=== PATIENT | female | born 1955 | race Caucasian/White ===

== ENCOUNTER 2020-07-23 09:32 | Outpatient (CLI) | payer SELFPAY ==
[2020-07-23 13:58] LABS: SARS-CoV-2 RNA PCR Negative (Negative)
== END 2020-07-23 09:33 | disposition home or self-care (01) ==
DX: Z20.822 Contact with and (suspected) exposure to COVID-19 (principal)
CPT/HCPCS: C9803; U0003; U0005

== ENCOUNTER 2022-09-14 14:12 | Outpatient (RCR) | payer MEDICARE, OTHER, SELFPAY ==
--- NOTE | 2022-09-14 15:31 | PTOPEVAL1 ---
Assessment and note entered by Chan Mccloud Evaluation Information Assessment Status Evaluation Diagnosis right ankle pain Onset 08/15/22 Subjective Information Pt. reports she initially injured the right ankle in 2016. She underwent surgery to repair a fx. She was unsuccessful with the first surgery and underwent a second surgery in 2017. She reports that she has had constant ankle pain since the initial injury. She reports that over the past month her pain has worsened. She describes her worst pain on the inside of the right ankle behind the medial malleolus. she reports that pain is most notable with first getting out of bed. She reports that pain will also worsen with prolonged walking. She takes regular Asprin and Advil to address her pain. She reports that she has no problem with sleeping at night. She is not using an AD. She states that she can only stand for about 15 minutes before having to sit due to pain. She states that she continues to drive. She reports she is currently retired. She reports that her goal for therapy is to reduce her ankle pain on the right. Reported Pain Level Pain Score 6: Self Report Assessment PT Clinical Summary Pt. is a 67 year old female who enters the clinic with right foot/ankle pain. She presents with severe postural deformity, impaired gait, impaired ROM and impaired strength, as well as pain on this date. Continued skilled PT is indicated in order to improve these areas to allow for improved comfort with standing activities. Recommend Carline brace for improved support of the right ankle with standing activities. Plan of Care Interventions Electrical Stimulation,Gait Training,Hot Pack/Cold Pack,Manual Therapy,Neuro Re-education,Patient/ Caregiver Educati,Therapeutic Activities, Therapeutic Exercise PT Services Indicated Yes Treatment Frequency and 2x/week x 10 visits Duration These treatments will address the objective and functional deficits as defined above. The patient will be advanced safely and appropriately in order for the patient to progress towards his/her prior level of function. Additional exercises will be introduced and as well as a comprehensive home exercise program upon discharge, if needed, ?to ensure carryover of functional gains achieved in the clinic. This treatment plan has been reviewed and agreement upon by the patient.
--- NOTE | 2022-09-14 15:32 | OPREHPOC ---
Outpatient Therapy Plan of Care This is a Multidisciplinary Plan of Care that may contain components documented by all disciplines (PT, OT, and ST.) PT Problem 1 PT Problem #1 Knowledge Deficit PT Goal 1 Goal Pt. will be independent with a HEP addressing strength and mobility at the right foot/ankle Target Visit 2 PT Problem 2 PT Problem #2 Pain PT Goal 1 Goal Decrease pain reports to 6/10 at worst with prolonged standing activities. Target Visit 10 PT Problem 3 PT Problem #3 Impaired Range of Motion PT Goal 1 Goal Pt. will demonstrate improved ankle dorsiflexion AROM to 10 degrees Target Visit 6 PT Problem 4 PT Problem #4 Impaired Functional Mobil PT Goal 1 Goal Pt. will demonstrate ability to stand for 30 minutes without rest and pain levels at 6/10 at worst in order to more thoroughly complete standing IADL's. Target Visit 10
--- NOTE | 2022-10-06 15:52 | PCPTNOTE ---
Kathy called to cancel her appointment today due to illness
--- NOTE | 2022-10-27 14:32 | PCPTNOTE ---
patient called and cancelled therapy today due to having to get her AC worked on at her home. [facility]
== END 2022-09-29 23:59 | disposition home or self-care (01) ==
LOC: CHSPT 14:12
DX: M25.571 Pain in right ankle and joints of right foot (principal)
CPT/HCPCS: 97014; 97110; 97112; 97140; 97161; G0283

== ENCOUNTER 2024-05-02 11:14 | Outpatient (CLI) | payer MEDICARE, SELFPAY ==
[2024-05-02 11:39] LABS: Basophils Percent Auto 1.2 % (0.0-1.0); Eosinophils Absolute Auto 0.39 K/mm3 (0.02-0.50); Eosinophils Percent Auto 4.8 % (1.0-6.0); Hematocrit 43.5 % (35.0-42.0); Hemoglobin 13.4 g/dL (11.7-13.8); Immature Granulocyte Absolute 0.05 K/mm3 (0.00-0.00); Immature Granulocyte Percent A 0.6 % (0.0-0.0); Lymphocytes Absolute Auto 2.07 K/mm3 (1.10-4.50); Lymphocytes Percent Auto 25.7 % (18.0-42.0); Mean Corpuscular HGB Conc 30.8 g/dL (32-36); Mean Corpuscular Hemoglobin 25.2 pg (27.0-31.0); Mean Corpuscular Volume 81.8 fL (78.0-102.0); Monocytes Absolute Auto 0.62 K/mm3 (0.10-0.90); Monocytes Percent Auto 7.7 % (2.0-11.0); Neutrophils Absolute Auto 4.82 K/mm3 (1.70-7.20); Platelet Count Result 324 K/mm3 (150-420); Red Blood Count 5.32 M/mm3 (4.20-5.40); Red Cell Distribution Width 15.7 % (11.6-14.4); White Blood Count 8.1 K/mm3 (4.8-10.8)
[2024-05-02 11:51] LABS: Hemoglobin A1C 6.3 % (<5.7)
[2024-05-02 12:51] LABS: Alanine Aminotransferase 39 U/L (14-59); Albumin Level 4.2 g/dL (3.4-5.0); Alkaline Phosphatase 95 U/L (46-116); Anion Gap 10 mmol/L (4-12); Aspartate Amino Transferase 18 U/L (15-37); Bilirubin,Total 0.4 mg/dL (0.00-1.00); Blood Urea Nitrogen 20 mg/dL (7-18); Calcium 9.4 mg/dL (8.5-10.1); Carbon Dioxide 27 mmol/L (21-32); Chloride 105 mmol/L (98-108); Cholesterol 246 mg/dL (0-200); Estimated Glomerular Filt Rate 57; Folic Acid > 20.0 ng/mL (8.6->20); Glucose 112 mg/dL (70-99); HDL Direct 81 mg/dL (40-60); Iron 79 ug/dL (50-170); LDL Cholesterol Calculated 148 mg/dL (<130); Osmolality Calculated 297 mOsm/kg (285-295); Percent Iron Saturation 22 % (12-57); Potassium 4.6 mmol/L (3.5-5.1); Sodium 142 mmol/L (136-145); Triglycerides 83 mg/dL (0-150); Vitamin B12 333 pg/mL (193-986)
--- OUTSIDE RECORDS SUMMARY | 2024-05-02 13:04 | XMS_ITS | Data Portability ---
Author Organization [place] [facility],, Yvette koroma Address [address] [place] [address] Assessment No assessment recorded. Plan of Treatment Reminders Order Date Submit Date Provider Last Modified By Organization Details Last Modified Time Details Appointments None recorde d. Lab HbA1c (hemogl obin A1c), blood 2024 025 [facility] (Lab), [address] [place], [address], 5 14:46:02 CMP, serum or plasma 2024 025 [facility] (Lab), [address] [place] [address], [address], 5 14:46:03 urinaly sis, complet e 2024 025 [facility] (Lab), [address] [place] [address], [id number], 5 14:46:02 albumin /creati nine, mass ratio, urine 2024 025 [facility] (Lab), [address] [place], [address], 5 14:46:03 lipid panel, serum 2024 025 [facility] (Lab), [address] [place] [address], [id number], 5 14:46:02 CBC w/ auto diff 2024 025 [facility] (Lab), [address] [place] [address], [id number], 5 14:46:02 vitamin D, 25-hydr oxy, total, serum 2024 025 [facility] (Lab), [address] [place] [address], [id number], 5 14:46:02 iron + total iron-bi nding capacit y (TIBC), serum 2024 025 [facility] (Lab), [address] [place] [address], [address], 5 14:46:02 vitamin B12 + folate, serum or blood 2024 025 [facility] (Lab), [address] [place] [address], [id number], 5 14:46:03 CMP, serum or plasma 2023 024 [facility], [address] [place] [address], [address], 4 09:30:43 urinaly sis, complet e 2023 024 [facility], [address] [place] [address], [place], [address], 4 09:30:44 albumin /creati nine, mass ratio, urine 2023 024 [facility], [address] [place] [address], [place], [address], 4 09:30:44 CBC w/ auto diff 04/30/ 2024 04/30/2 024 [facility], [address] [facility], [facility], [place], [address], 4 09:30:43 iron + total iron-bi nding capacit y (TIBC), serum 2023 024 [facility], [address] [facility], [facility], [place], [address], 4 09:30:43 vitamin B12 + folate, serum or blood 2023 024 [facility], [address] [facility], [facility], [place], [address], 4 09:30:43 vitamin D, 25-hydr oxy, total, serum 2023 024 [facility], [address] [facility], [place], [address], 4 09:30:43 TSH + free T4, serum 2023 024 [facility], [address] [facility], [place], [address], 4 09:30:43 Referral None recorde d. Procedures None recorde d. Surgeries None recorde d. Imaging MAMMO, screeni carmina, thom al 2023 024 [facility] (Imaging), [address] [place] [address], [address], 4 09:21:11 Medication Orders furosem sruthi 40 mg tablet 2024 025 [facility] #[id number], [address] [place], [address], 5 15:56:03 potassi um chlorid e ER 20 mEq tablet, extende d release 2024 025 [facility] #[id number], [address] [place], [address], 5 15:56:04 Loratad ine-D 10 mg-240 mg tablet, extende d release 24 hr 2024 025 [facility] [address] [place], [address], 5 15:56:05 valacyc lovir 1 gram tablet 2024 025 [id number], [address] [place], [address], 5 15:56:03 hydroxy zine HCl 50 mg tablet 2024 025 [facility], [address] [place], [address], 5 15:56:04 cefdini r 300 mg capsule 2024 025 [facility], [address] [place], [address], 5 15:56:03 ProAir HFA 90 mcg/act uation aerosol inhaler 2024 025 [facility], [address] [place], [address], 5 15:56:04 butalbi lisa 50 mg-acet aminoph en 325 mg-caff eine 40 mg-code ine 30 mg cap 2024 025 [facility], [address] [place], [address], 5 15:56:05 meloxic am 7.5 mg tablet 2023 025 [facility] #46631, [address], [place], [id number], 5 15:40:08 furosem sruthi 40 mg tablet 2023 [facility] #04145, [address], [place], [id number], 4 15:34:12 ondanse anthony 8 mg disinte grating tablet 2023 024 [facility] #72339, [address], [place], [id number], 4 15:34:26 Wal-iti n D 10 mg-240 mg tablet, extende d release 2023 [facility] #95336, [address], [place], [id number], 4 15:34:22 potassi um chlorid e ER 20 mEq tablet, extende d release 2023 024 [facility] #22393, [address], [place], [id number], 4 15:34:17 cefdini r 300 mg capsule 2023 024 [facility] #95945, [address], [place], [id number], 4 17:12:03 hydroxy zine HCl 50 mg tablet 2023 024 [facility] #34315, [address], [place], [id number], 4 15:34:16 butalbi lisa 50 mg-acet aminoph en 325 mg-caff eine 40 mg-code ine 30 mg cap 2023 024 [facility] #22947, [address], [place], [id number], 4 15:34:18 cyclobe nzaprin e 10 mg tablet 2021 [facility] #06818, [address], [place], [id number], 4 15:13:58 Spiriva Respima t 1.25 mcg/act uation solutio n for inhalat ion 2021 [facility] #27535, [address], [place], [id number], 4 15:15:50 potassi um chlorid e ER 20 mEq tablet, extende d release 2021 [facility] #07846, [address], [place], [id number], 15:02:05 Clariti n-D 24 Hour 10 mg-240 mg tablet, extende d release [email or web address] [place] [address] [facility] #48493, [address] [place], [place], [id number], 18:08:14 hydroxy zine HCl 50 mg tablet 2021 [facility] [place], [address], 15:35:39 prednis one 20 mg tablet 2021 [facility] #19387, [address], [place], [id number], 5 15:30:16 ipratro pium bromide 42 mcg (0.06 %) nasal spray 2021 022 [facility] #79476, [address], [place], [id number], 16:42:37 Patient TargetsNo targets recorded. Patient Instructions Encounter Date Encounter Id Patient Instructions Last Modified By Organization Details Last Modified Time 08/12/2021 [id number] eustachian tube problems: care instructions [email or web address] Not available 08/12/2021 16:42:29 11/20/2021 [id number] managing your allergies: care instructions Not available 11/20/2021 18:07:46 -Please return to office at earliest convenience for complete physical exam and further workup of allergies, pruritis. [email or web address] Not available 11/20/2021 16:36:30 I have interviewed and examined the patient with Kelsie Brewer RN. I have personally confirmed the pierre elements of the history and physical examination and have personally reviewed the radiographic and laboratory data that are available. I have collaborated directly with Kelsie Brewer RN in the formulation of the assessment and plan. I have edited the above note in electronic format, and the content reflects my personal involvement in this patient encounter. Not available 11/25/2021 05:33:18 01/27/2022 [id number] cough: care instructions [email or web address] Not available 01/27/2022 14:59:53 rhinitis: care instructions [email or web address] Not available 01/27/2022 14:59:53 06/22/2023 [id number] mammogram: about this test [email or web address] Not available 06/22/2023 15:25:59 back care and preventing injuries: care instructions [email or web address] Not available 06/22/2023 15:33:50 getting back to normal after low back pain: care instructions [email or web address] Not available 06/22/2023 15:33:50 learning about relief for back pain [email or web address] Not available 06/22/2023 15:33:50 high blood pressure: care instructions [email or web address] Not available 06/22/2023 15:26:00 learning about high blood pressure jtillinghast Not available 06/22/2023 15:25:59 Acute Sinusitis: Care Instructions [email or web address] Not available 06/22/2023 15:36:00 anemia: care instructions [email or web address] Not available 06/22/2023 15:25:59 hypothyroidism: care instructions [email or web address] Not available 06/22/2023 15:25:59 04/28/2024 [id number] When You Want to Lose Weight: Care Instructions [email or web address] Not available 04/28/2024 15:55:57 high blood pressure: care instructions [email or web address] Not available 04/28/2024 15:55:56 learning about high blood pressure jtillinghast Not available 04/28/2024 15:55:58 Acute Sinusitis: Care Instructions [email or web address] Not available 04/28/2024 15:55:57 anemia: care instructions [email or web address] Not available 04/28/2024 15:55:57 learning about asthma [email or web address] Not available 04/28/2024 15:55:58 hypothyroidism: care instructions jtillinghast Not available 04/28/2024 15:55:57 Reason for Referral None Reported. Problems Name Problem SNOMED Code Status Onset Date Resolution Date Notes Provider Name and Address Organization Details Recorded Time Dyspnea [id number] Active MD [address], [place], [address] [facility] [place] [facility], 5 10:22:53 Chronic rhinitis 85521418 Active MD [address], [place], [address] , [place] [facility], 6 00:20:56 Allergic asthma 905229896 Active MD [address], [place], [address] , [place] [facility], 6 15:25:29 Allergy to latex Active Iris drummond [place] [facility], 6 09:33:23 Migraine 19882658 Active MD [address], [place], [address], [place] [facility], 6 15:25:29 Anxiety 65875262 Active Iris drummond, [place] [facility], 5 13:51:12 Nausea 290878869 Completed 02/14/[address], [place], [address], [place] [facility], 6 09:42:19 Acute maxillar y sinusiti s 27451965 Active Iris drummond, [place] [facility], 6 10:59:38 Benign paroxysm al position al vertigo 764410591 Active MD [address], [place], [address], [place] [facility], 6 23:30:08 Celiac disease 837278971 Active Rukhsana drummond, [place] [facility], 6 15:22:24 Generali zed headache 355327595 Completed 02/14/[address], [place], [address], [place] [facility], 6 09:41:56 Herpes labialis 0166942 Active Isa drummond, [place] [facility], 6 11:40:05 Drug withdraw al headache 21600714 Active MD [address], [place], [address], [place] [facility], 6 00:20:56 Strain of neck muscle 080977792 Completed 02/14/[address], [place], [address], [place] [facility], 6 09:42:28 Bruxism 243134714 Active MD [address], [place], [address], [place] [facility], 6 00:20:56 Peripher al edema 995323911 Active MD [address], [place], [address], [place] [facility], 6 00:20:56 Iron deficien cy anemia 27295483 Active Rukhsana drummond, [place] [facility], 6 15:22:24 Impacted cerumen 23616178 Active MD [address], [place], [address], [place] [facility], 6 09:21:19 Contact dermatit is 80806405 Active MD [address], [place], [address], [place] [facility], 6 09:21:19 Pruritic disorder 342273044 Active [address], [place], [address], [place] [facility], 6 16:58:22 Gluten sensitiv ity 441311875 Active [address], [place], [address], [place] [facility], 6 16:59:44 Chronic pain 11270392 Active [address], [place], [address], [place] [facility], 8 15:57:46 Exposure to SARS-CoV -2 Completed 202010/12/2020 Removal Reason: Problem marked historica l by user gitasposito 4 from the COVID-[address] watch [address], [place], [address], [place] [facility], 12:53:09 Problem Notes None recorded. Procedures Surgical History Date Name Laterality Status Provider Name and Address Organization Details Recorded Time 6 Cerumen Removal completed MD [address], [place], [address], [place] [facility], 07/30/2015 09:21:19 6 Cerumen Removal completed MD [address], [place], [address], [place] [facility], 07/04/2015 17:39:59 Imaging Results None recorded. Procedure Notes None recorded. Medical Equipment None Reported. Allergies No known drug allergies Medications Name Sig Start Date Stop Date Status Note LastModified by Organization Details LastModified Time Prescripti on - Prior Authorizat ion Request 11/22 completed Not Available Not Available Not Available cyclobenza arnaldo 10 mg tablet TAKE 1 TABLET BY MOUTH TWICE DAILY NEEDED 06/21 completed Not Available Not Available Not Available furosemide 40 mg tablet TAKE 1 TABLET BY MOUTH EVERY DAY active Not Available Not Available No t Available prednisone 10 mg tablet Take 4 tablets for 4 days, 3 tablets for 3 days, 2 tablets for 2 days and 1 tablet for 2 days 04/28 completed Not Available Not Available Not Available doxycyclin e hyclate 100 mg capsule TAKE 1 CAPSULE BY MOUTH TWICE DAILY FOR 10 DAYS 06/21 completed Not Available Not Available Not Available clindamyci n HCl 300 mg capsule 02/17 completed Not Available Not Available Not Available albuterol sulfate 2.5 mg/3 mL (0.083 %) solution for nebulizati on active Not Available Not Available Not Available azithromyc in 250 mg tablet TAKE 2 TABLETS BY MOUTH TODAY, THEN TAKE 1 TABLET DAILY FOR 4 DAYS DIRECTED 06/21 completed Not Available Not Available Not Available tramadol 37.5 mg-acetami nophen 325 mg tablet active Not Available Not Available No t Available benzonatat e 200 mg capsule Take 1 capsule 3 times a day by oral route as needed for 10 days. 09/21 completed Not Available Not Available Not Available Zovia 1/35E (28) 1 mg-35 mcg tablet Take 1 tablet every day by oral route. 2015 active Not Available Not Available Not Avai lable valacyclov ir 1 gram tablet 2 tabs twice a day by mouth every 24 hours for a total of 2 doses as needed active Not Available Not Available No t Available sumatripta n 100 mg tablet Take by oral route. one tablet every 2 hours as needed for headache . maximum 2 tabs in 24 hours active Not Available Not Available No t Available hydrocodon e 5 mg-acetami nophen 325 mg tablet TAKE 1 TABLET BY MOUTH EVERY 6 HOURS NEEDED FOR PAIN 08/12 completed Not Available Not Available Not Available prochlorpe razine maleate 5 mg tablet TAKE 1 TABLET BY MOUTH EVERY 4 HOURS 06/21 completed Not Available Not Available Not Available ondansetro n HCl 8 mg tablet TAKE 1 TABLET BY MOUTH EVERY 8 HOURS active Not Available Not Available No t Available sumatripta n 25 mg tablet active Not Available Not Available Not Available ondansetro n HCl 4 mg tablet TAKE 2 TABLETS BY MOUTH TWICE DAILY FOR 10 DAYS 11/02 completed Not Available Not Available Not Available prednisone 20 mg tablet TAKE 2 TABS IN MORNING W/FOOD X 5 DAYS-DO NOT TAKE ANY NSAIDS(I BUPROFEN ,ALEVE,E TC)ON THIS MEDICINE 04/28 completed Not Available Not Available Not Available hydroxyzin e pamoate 50 mg capsule TAKE 1 CAPSULE BY MOUTH FOUR TIMES DAILY 11/20 completed Not Available Not Available Not Available diphenoxyl ate-atropi ne 2.5 mg-0.025 mg tablet active Not Available Not Available No t Available penicillin V potassium 500 mg tablet TAKE 1 TABLET BY MOUTH EVERY 12 HOURS X 10 DAYS 04/28 completed Not Available Not Available Not Available topiramate 25 mg tablet 1 tablet po daily for 5 days, then add 1 tablet daily every 5 days to target of 4 tabs twice daily active Not Available Not Available No t Available hydroxyzin e HCl 50 mg tablet Take 1 tablet 4 times a day by oral route as needed for 30 days. active Not Available Not Available No t Available acetaminop hen 300 mg-codeine 30 mg tablet 07/09 completed Not Available Not Available Not Available prochlorpe razine maleate 10 mg tablet Take 1 tablet 3 times a day by oral route for 5 days. 09/26 completed Not Available Not Available Not Available valacyclov ir 500 mg tablet TAKE 1 TABLET BY MOUTH ONCE DAILY active Not Available Not Available No t Available hydrocodon e 10 mg-acetami nophen 325 mg tablet 01/08 completed Not Available Not Available Not Available omeprazole 40 mg capsule,de layed release TAKE 1 CAPSULE BY MOUTH ONCE DAILY 06/21 completed Not Available Not Available Not Available tramadol 50 mg tablet 09/26 completed Not Available Not Available Not Available triamcinol one acetonide 0.1 % topical cream Apply 1 applicat ion twice a day by topical route. 09/26 completed Not Available Not Available Not Available butalbital -acetamino phen-caffe ine 50 mg-325 mg-40 mg tablet active Not Available Not Available Not Available amoxicilli n 500 mg tablet 06/08 completed Not Available Not Available Not Available ondansetro n 8 mg disintegra ting tablet DISSOLVE 1 TABLET IN THE MOUTH EVERY 8 HOURS active Not Available Not Available No t Available ketorolac 10 mg tablet active Not Available Not Available Not Available cefadroxil 500 mg capsule 02/13 completed Not Available Not Available Not Available meloxicam 7.5 mg tablet TAKE 1 TABLET BY MOUTH ONCE DAILY 04/28 completed Not Available Not Available Not Available oxycodone- acetaminop hen 5 mg-325 mg tablet 06/21 completed Not Available Not Available Not Available amoxicilli n 875 mg tablet 875 MG ORALLY EVERY 12 HOURS FOR 10 DAYS 06/21 completed Not Available Not Available Not Available alprazolam 0.25 mg tablet TAKE 1 TABLET BY MOUTH THREE TIMES DAILY 06/21 completed Not Available Not Available Not Available potassium chloride ER 20 mEq tablet,ext ended release(pa rt/cryst) Take 1 tablet every day by oral route. active Not Available Not Available No t Available amitriptyl ine 25 mg tablet Take 1 tablet every day by oral route at bedtime for 90 days. active Not Available Not Available No t Available meclizine 25 mg tablet Take 1 tablet 3 times a day by oral route. 09/26 completed Not Available Not Available Not Available benzonatat e 100 mg capsule 06/08 completed Not Available Not Available Not Available dexamethas one 2 mg tablet TAKE 5 TABLETS BY MOUTH DAILY IN THE MORNING FOR 1 DAY 06/21 completed Not Available Not Available Not Available hydrocodon e 7.5 mg-acetami nophen 325 mg tablet active Not Available Not Available No t Available prednisone 2.5 mg tablet active Not Available Not Available Not Available cephalexin 500 mg capsule 02/13 completed Not Available Not Available Not Available oseltamivi r 75 mg capsule Take 1 capsule every day by oral route for 10 days. 02/17 completed Not Available Not Available Not Available butalbital 50 mg-acetami nophen 325 mg-caffein e 40 mg-codeine 30 mg cap TAKE 1 CAPSULE BY MOUTH EVERY 4 HOURS NEEDED active Not Available Not Available No t Available Claritin-D 12 Hour 5 mg-120 mg tablet,ext ended release Take 1 tablet twice a day by oral route for 30 days. 06/08 completed Not Available Not Available Not Available omeprazole 20 mg capsule,de layed release active Not Available Not Available Not Available montelukas t 10 mg tablet active Not Available Not Available Not Available gabapentin 100 mg capsule TAKE 1 CAPSULE BY MOUTH EVERY DAY 04/28 completed Not Available Not Available Not Available azelastine 137 mcg (0.1 %) nasal spray [place] 2 sprays twice a day by intranas al route. 06/15 completed Not Available Not Available Not Available epinephrin e 0.3 mg/0.3 mL injection, auto-injec tor Take 1 auto by injectio n route as needed. active Not Available Not Available No t Available levofloxac in 500 mg tablet active Not Available Not Available Not Available methylpred nisolone 4 mg tablets in a dose pack FOLLOW PACKAGE DIRECTIO NS 08/12 completed Not Available Not Available Not Available albuterol sulfate HFA 90 mcg/actuat ion aerosol inhaler INHALE 2 TO 3 PUFFS BY MOUTH EVERY 4 TO 6 HOURS NEEDED active Not Available Not Available No t Available ipratropiu m bromide 42 mcg (0.06 %) nasal spray 2 SPRAY INTRANAS ALLY THREE TIMES A DAY ADMINIST ER INTO EACH NOSTRIL active Not Available Not Available No t Available cefdinir 300 mg capsule Take 1 capsule every 12 hours by oral route for 10 days. active Not Available Not Available No t Available fluticason e propionate 50 mcg/actuat ion nasal spray,susp ension Inhale 2 sprays every day by intranas al route. active Not Available Not Available No t Available sertraline 50 mg tablet Take 1 tablet every day by oral route for 30 days. 06/21 completed Not Available Not Available Not Available ipratropiu m bromide 21 mcg (0.03 %) nasal spray USE 2 SPRAYS IN EACH NOSTRIL TWICE DAILY 08/12 completed Not Available Not Available Not Available diazepam 5 mg tablet 06/21 completed Not Available Not Available Not Available amoxicilli n 875 mg-potassi um clavulanat e 125 mg tablet 06/08 completed Not Available Not Available Not Available amoxicilli n 500 mg-potassi um clavulanat e 125 mg tablet 02/13 completed Not Available Not Available Not Available 16.2 mg-0.1037 mg-0.0194 mg tablet 11/20 completed Not Available Not Available Not Available Loratadine -D 10 mg-240 mg tablet,ext ended release 24 hr TAKE 1 TABLET BY MOUTH DAILY 2024 active Not Available Not Available Not Avai lable potassium chloride ER 10 mEq tablet,ext ended release(pa rt/cryst) 09/26 completed Not Available Not Available Not Available duloxetine 20 mg capsule,de layed release TAKE 1 CAPSULE BY MOUTH TWICE DAILY 06/21 completed Not Available Not Available Not Available ferrous gluconate 324 mg (36 mg iron) tablet Take 1 tablet 3 times a day by oral route. 06/08 completed Not Available Not Available Not Available Claritin-D 12 Hour 1 TABLET DAILY 03/06 completed Not Available Not Available Not Available ferrous gluconate 324 mg (38 mg iron) tablet TAKE 1 TABLET BY MOUTH THREE TIMES DAILY 06/21 completed Not Available Not Available Not Available Butalbital Compound with Codeine 30 mg-50 mg-325 mg-40 mg capsule TAKE 1 CAPSULE BY MOUTH EVERY 4 HOURS FOR 5 DAYS active Not Available Not Available No t Available ferrous gluconate 325 mg (36 mg iron) tablet Take 1 tablet 3 times a day by oral route for 30 days. 06/08 completed CALLED IN Not Available Not Available Not Available diclofenac 1 % topical gel APPLY 2 GRAMS TO SINGLE ELBOW, WRIST OR HAND 4 TIMES DAILY active Not Available Not Available No t Available Dulera 200 mcg-5 mcg/actuat ion HFA aerosol inhaler Inhale 2 puffs twice a day by inhalati on route. 06/08 completed Not Available Not Available Not Available Wal-Fex D 24 Hour 180 mg-240 mg tablet,ext ended release Take one tablet daily 01/27 completed Not Available Not Available Not Available Vicodin ES 7.5 mg-300 mg tablet Take 1 tablet every day by oral route for 5 days. active Not Available Not Available No t Available potassium chloride ER 20 mEq tablet,ext ended release TAKE 1 TABLET BY MOUTH EVERY DAY active Not Available Not Available No t Available Spiriva Respimat 1.25 mcg/actuat ion solution for inhalation Inhale 2 puffs every day by inhalati on route. 06/21 completed Not Available Not Available Not Available Paxlovid 300 mg (150 mg x 2)-100 mg tablets in a dose pack TK 2 NIRMATRE LVIR TS AND 1 RITONAVI R T TOGETHER PO BID FOR 5 DAYS 06/21 completed Not Available Not Available Not Available Vitals Date Recorded Body height Heart rate Oxygen saturation Oxygen saturation in Arterial blood by Pulse oximetry Respiratory rate Body temperature Systolic blood pressure Diastolic blood pressure Provider Name and Address Organization Details Last Updated DateTime 2 160.02 cm 97 /min 98 % 98 % 18 /min 96.4 [degF] 148 mm[Hg] 80 mm[Hg] Liz Aly [place] [facility], 2 15:05:37 Date Recorded Body height Body mass index (BMI) Body weight Heart rate Oxygen saturation Oxygen saturation in Arterial blood by Pulse oximetry Respiratory rate Body temperature Systolic blood pressure Diastolic blood pressure Provider Name and Address Organization Details Last Updated DateTime 4 160.02 cm 36.5 kg/m2 38903.0 3 g 104 /min 94 % 94 % 18 /min 97.4 [degF] 132 mm[Hg] 84 mm[Hg] hiral zamarripa [place] [facility], 4 15:10:32 Date Recorded Body height Body mass index (BMI) Body weight Oxygen saturation Oxygen saturation in Arterial blood by Pulse oximetry Heart rate Respiratory rate Systolic blood pressure Diastolic blood pressure Provider Name and Address Organization Details Last Updated DateTime 5 160.02 cm 35.6 kg/m2 23112.0 7 g 97 % 97 % 112 /min 18 /min 148 mm[Hg] 82 mm[Hg] Sarah Meredith [place] [facility], 5 15:20:04 Social History Question Answer Notes LastModified by Organizat ion Details LastModified Time Tobacco Smoking Status Never Smoker Iris Katherine drummond [place] [facility], 06/28/2014 14:51:03 What Is Your Level Of Alcohol Consumption? Occasional [email or web address] Information not available 06/28/2014 What Was The Date Of Your Most Recent Tobacco Screening? 04/28/2024 [email or web address] Information not available 04/28/2024 Do You Use Any Illicit Or Recreational Drugs? No Information not available 06/22/2023 Do You Or Have You Ever Used Any Other Forms Of Tobacco Or Nicotine? No [email or web address] Information not available 06/22/2023 Sex: Unknown Functional Status None recorded. Mental Status None recorded. Family History Relationship Description Onset Age of this Age Resolved Age Notes LastModified by Organization Details LastModified Time Mother Heart disease [email or web address] Not available 15:23:16 Mother Arthritis [email or web address] Not avai lable 06/18/2015 15:23:16 Father Heart disease 83 [email or web address] Not available 15:23:16 Medical History Condition Response Diabetes N Anxiety Disorder N Coronary Artery Disease N Gout N Arthritis N Kidney Stones N Hyperthyroidism N Tuberculosis N Cancer N Diverticulitis N Stroke N Asthma Y Allergies Y COPD N Depression N Stress N Hypothyroidism N GERD/Reflux N High Cholesterol N Liver Disease N Heart Disease N Pulmonary Embolism N Fibromyalgia N Hypertension N Osteoporosis N Kidney Disease N Gynecological HistoryNo gynecological history recorded. Obstetrics History GPAL:G 0 P 0 0 0 0 Immunizations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
[2024-05-02 16:50] LABS: Add Urine Microscopic? NO; Appearance Urine Clear (Clear); Bilirubin Urine Negative (Negative); Blood Urine Negative (Negative); Color Urine Yellow (Yellow); Glucose Urine UA Negative (Negative); Ketones Urine Negative (Negative); Leukocyte Esterase Ur Negative (Negative); Nitrate Urine Negative (Negative); Protein Urine Negative (Negative); Specific Grav Ur 1.025 (1.010-1.020); Urobilinogen Urine 0.2 mg/dL (0.2-1.0)
[2024-05-02 16:56] LABS: Creatinine Urine 179.23 mg/dL (40-278); MALB Creatinine Ratio 7.2 mg/g (0-30); Microalbumin Urine Random < 13.0 mg/L
[2024-05-04 02:13] LABS: Vitamin D 25 Hydroxy 13 ng/mL (30-100)
== END 2024-05-02 11:15 | disposition home or self-care (01) ==
LOC: CHSLAB 11:20
DX: E66.9 Obesity, unspecified (principal); D64.9 Anemia, unspecified; E03.9 Hypothyroidism, unspecified; E78.00 Pure hypercholesterolemia, unspecified; E55.9 Vitamin D deficiency, unspecified; I10 Essential (primary) hypertension; R73.01 Impaired fasting glucose
CPT/HCPCS: 36415; 80053; 80061; 81003; 82043; 82306; 82607; 82652; 82746; 83036; 83540; 83550; 85025

== ENCOUNTER 2025-01-13 05:50 | Emergency (ER) | payer MEDICARE, SELFPAY ==
[2025-01-13 05:50] VITALS: BP 160/86; PULSE 106; RESP 18; TEMP 36.2; O2SAT 99
--- NOTE | 2025-01-13 06:00 | PC.NURSE ---
Nasal clip applied
--- NOTE | 2025-01-13 06:30 | PC.NURSE ---
Pt very anxious. 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 She states that she is feeling overwhelmed.
--- NOTE | 2025-01-13 06:53 | PC.NURSE ---
ERP aware of pt's vital signs. No new orders at this time.
--- NOTE | 2025-01-13 07:08 | ED.EPISTAXIS ---
HPI - Epistaxis General Chief complaint: Epistaxis Stated complaint: Bloody nose Time Seen by Provider: 01/13/25 06:07 History of Present Illness HPI Narrative: 69-year-old white female male with history of rhinorrhea, reports his really been out here, reports she has lot of allergies including to latex, was put recently on it for a pro p.m. nasal drops and she reports she has been using them a whole lot because her nose is so runny that it just drive her crazy. Tonight she started having some bleeding in her nose, she would hold her nose and the bleeding would stop but then she would have to blow her nose to get rid of the secretions and the bleeding would start again this has gone on for the last several hours and she comes in now asking if We can do something about it. Her rhinorrhea his colon on for years, but she has not had a nosebleed before No recent fever, chills, cough, shortness of breath, chest pain, palpitations, near-syncope or syncope. No recent abdominal pain, nausea vomiting, diarrhea constipation, dysuria urgency or frequency. Related Data Home Medications ?Medication ?Instructions ?Recorded ?Confirmed ?Last Taken ?Type hydroxyzine HCl 50 mg tablet 50 mg PO TID 05/27/23 01/17/25 Unknown History loratadine-pseudoephedrine ER 10 1 tablet PO DAILY 05/27/23 01/17/25 Unknown History mg-240 mg tablet,extended [id number] (Claritin-D 24 Hour) potassium chloride 20 mEq meq PO 01/11/24 01/17/25 Unknown History tablet,extended release furosemide 40 mg tablet mg PO PRN 01/17/25 01/17/25 Unknown History Allergies Allergy/AdvReac Type Severity Reaction Status Date / Time Latex, Natural Rubber Allergy Severe hives Verified 01/17/25 10:27 latex Allergy Unknown Unknown Verified 01/17/25 10:27 azithromycin AdvReac Severe abdominal Uncoded 01/17/25 10:27 pain Review of Systems Review of Systems: ROS is negative except as in HPI PMFSH Past Medical History Medical History (Updated 01/17/25 @ 11:02 by Jarrett Turpin DO) Calcaneovalgus deformity of right foot Fracture of ankle, right, closed Sprain of deltoid ligament of right ankle, sequela Family History Family History Mother Family history of arthritis Social History Social History Smoking status: Never smoker Alcohol intake: current Exam Narrative: pleasant, well-appearing, articulate, anxious,, no acute distress A nasal spring clip is in place and she has no current bleeding however within just a minute of being in the room she asked to remove it, and after she can briefly remove it and just very gently blow her nose, however she went on the constantly continue relatively gently blowing her nose over and over, and then there was a little blood tinged on the tissue. Page and her blood pressure, was very animated, kept moving, was very anxious. Const: General: cooperative, healthy appearing, comfortable, no acute distress, well developed, alert, awake and Physically active Orientation/consciousness: patient oriented x3 HENMT: Head: normal to inspection, normocephalic and atraumatic Ears: hearing grossly normal bilaterally and external ears normal Face/Nose/Sinus: Normal external nose present, Normal nares present, Normal nasal mucous membranes and turbinates present and normal facial exam Face and sinus: normal facial exam Mouth: No Normal oral and palatal mucosa present (Dried blood in left nares, no significant active bleeding, no bleeding sour), Yes lip normal, Yes tongue normal, Yes oropharynx normal and Yes moist mucous membranes Teeth and gingiva: dentition normal Throat: posterior oropharynx normal and tonsils normal ( erythematous) Eyes: General: appearance normal, both eyes and all related structures Alignment and Position: alignment normal and position normal Periorbital: periorbital findings normal Eyelids: eyelids normal Conjunctivae: conjunctivae normal Sclera: sclerae normal Cornea: corneas normal Pupils: Equal, round and reactive pupils present EOM: EOMs intact bilaterally Neck: Neck: normal visual inspection, full ROM and no lymphadenopathy Chest: Chest palpation & inspection: normal inspection of the chest Resp: Effort & Inspection: normal respiratory effort, able to speak in complete sentences, no audible wheezes, no respiratory distress and no use of accessory muscles Auscultation: clear to auscultation bilaterally Cardio: Jugular venous distension: no JVD Rate: regular rate Rhythm: regular rhythm GI: Inspection: normal to inspection GI Palp: No abdominal tenderness, No Tenderness to palpation present (GI), No Guarding due to palpation present (GI), No No hepatosplenomegaly present, No Palpable mass present and No Rebound tenderness present Skin: General skin exam: normal color, no rashes or lesions noted, elasticity normal and turgor normal Neuro: General: patient oriented x3, gait normal, tone normal and moves all extremities Cranial nerves: Yes CN's II-XII intact bilaterally, Yes Equal, round and reactive pupils present and Yes Bilaterally intact EOM present Speech: normal speech Motor exam (neuro): 5/5 motor strength present throughout and Normal motor muscle tone present throughout Sensory Exam: normal sensation Extrem: General: normal to inspection, normal exam except as noted and no pedal edema Psych: Appearance: grossly normal and well kempt Mental Status: mental status grossly normal Speech and movement: Normal speech and movement present Affect: normal affect Attitude: cooperative Thought process: Normal thought process present Course Course Emergency Course: Differential diagnosis includes but is not limited to overuse up ipratropium, mechanical irritation, allergic rhinitis, sinusitis, spontaneous bleed, I discussed with the patient the option of placing a Rapid rhino balloon in her left nostril and stressed that she would have to leave it there for 48 hours, explained would likely make that side feels stuffy, and she is concerned she would not be able to stand at with the ongoing runny nose that she has had for a prolonged time. She acknowledged her anxiety and reports that she cares for her elderly mother 24 hours a day 7 days a week and has no current assistance. She reports that in the past to course of steroids settle down her runny nose for a while. She denies history of hypertension although she is 162 over 88 currently. I repositioned since spring, ever 60 of prednisone orally, 50 of hydroxyzine orally for anxiety, and gave her amlodipine 10 mg p.o. for her blood pressure 7:15 a.m. I have given report to Dr. Wesley and he assumes care. He is currently with her offering rapid final placement, or giving time for the medication to kick in, and let her go home with a spring clip for intermittent use. She reported to him that she would like to try and relax and not blow her nose for now and see if that works. Connor Davis MD Vital Signs Vital signs: Vital Signs Temperature 36.2 C L 01/13/25 05:50 Pulse Rate 106 H 01/13/25 05:50 Respiratory Rate 18 01/13/25 05:50 Blood Pressure 160/86 H 01/13/25 05:50 Pulse Oximetry 99 01/13/25 05:50 Oxygen Delivery Room Air 01/13/25 05:50 Temperature 36.2 C L 01/13/25 05:50 Pulse Rate 94 01/13/25 09:14 Respiratory Rate 20 01/13/25 09:12 Blood Pressure 171/90 H 01/13/25 09:14 Pulse Oximetry 96 01/13/25 09:12 Oxygen Delivery Room Air 01/13/25 09:12 Discharge Plan Discharge Clinical Impression: Epistaxis, Hypertension Patient Disposition: Home Condition: Stable Instructions: Antibiotic Form, Nosebleed (ED), Hypertension (ED) Additional Instructions: Advised patient to take medication as prescribed and to follow with primary care physician within the next 3 to 5 days further evaluation and treatment. Patient Language: Hungarian Prescriptions: New methylprednisolone [Medrol (Seth)] 4 mg tablets,dose pack See Rx Instructions .ROUTE .COMPLEX Qty: 21 0RF Rx Instructions: for 6 days No Action ondansetron 8 mg tablet,disintegrating 8 mg PO Q12H PRN (Reason: nausea and vomiting) Qty: 10 0RF Claritin-D 24 Hour 10-240 mg tablet extended release 24 hr 1 tablet PO DAILY hydroxyzine HCl 50 mg tablet 50 mg PO TID potassium chloride 20 mEq tablet extended release PO furosemide 40 mg tablet PO PRN losartan 50 mg tablet 50 mg PO DAILY Qty: 90 0RF albuterol sulfate 0.63 mg/3 mL solution for nebulization 0.63 mg inhalation Q4-6H PRN (Reason: shortness of breath or wheezing) Qty: 75 1RF Follow-up/Referrals: Jarrett Turpin DO [Primary Care Provider, [facility]] Time of Disposition: 08:43
[2025-01-13 07:30] VITALS: BP 173/88; PULSE 95; RESP 20; O2SAT 96
[2025-01-13 08:00] VITALS: BP 170/102; PULSE 92; RESP 20; O2SAT 95
[2025-01-13 08:40] VITALS: BP 175/90; PULSE 94; RESP 20; O2SAT 96
[2025-01-13 09:12] VITALS: BP 170/85; PULSE 90; RESP 20; O2SAT 96
[2025-01-13 09:14] VITALS: BP 171/90; PULSE 94
== END 2025-01-13 09:15 | disposition home or self-care (01) ==
PROVIDERS: Emergency Provider Emergency Medicine; PCP Family Medicine
DX: R04.0 Epistaxis (principal); I10 Essential (primary) hypertension
CPT/HCPCS: 99283; A9270; J7512